=== PATIENT | male | born 1985 | race Caucasian/White ===

== ENCOUNTER 2021-04-30 13:26 | Emergency (ER) | payer SELFPAY ==
--- NOTE | ~2021-04-30 | XR_ITS ---
EXAMINATION: XR chest 2V EXAM DATE: 04/30/2021 13:41 INDICATION: Extremity swelling. TECHNIQUE: Frontal and lateral projections of the chest obtained and reviewed. Comparison is made to prior examination from 05/23/2014. FINDINGS: The lungs are clear. There are no pleural effusions. The cardiomediastinal silhouette is within normal limits. There is no pneumothorax suspected. The bones and soft tissues are unremarkab le. IMPRESSION: No acute cardiopulmonary findings. Reviewed, dictated and finalized at location A.
[2021-04-30 13:31] VITALS: BP 169/86; PULSE 102; RESP 19; TEMP 36.6; O2SAT 99
--- NOTE | 2021-04-30 13:31 | ECG_ITS ---
Measurements Intervals [place] Rate: 102 P: 53 CA: 151 QRS: 6 QRSD: 90 T: 34 QT: 333 QTc: 434 Interpretive Statements SINUS TACHYCARDIA DELAYED PRECORDIAL R/S TRANSITION BASELINE WANDER- I, II, III, AVR, AVL, V4 BORDERLINE ECG Electronically Signed On 04-30-2021 15:58:18 CDT by Pancho Mac D.O.
[2021-04-30 13:52] VITALS: BP 135/85; PULSE 102; RESP 20; O2SAT 96
[2021-04-30 14:04] LABS: Basophils Absolute Auto 0.1 K/mm3 (0.0-0.1); Basophils Percent Auto 0.8 % (0.2-1.2); Eosinophils Absolute Auto 0.2 K/mm3 (0-0.3); Eosinophils Percent Auto 2.8 % (0-4.4); Hematocrit 52.2 % (42.0-52.0); Hemoglobin 16.1 g/dL (14.0-18.0); Immature Granulocyte Absolute 0.03 K/mm3 (0.00-0.031); Immature Granulocyte Percent A 0.5 % (0-0.5); Lymphocytes Absolute Auto 1.97 K/mm3 (0.9-3.2); Lymphocytes Percent Auto 31.9 % (18.3-44.2); Mean Corpuscular HGB Conc 30.8 g/dl (32-36); Mean Corpuscular Hemoglobin 27.7 pg (26-34); Mean Corpuscular Volume 89.8 fl (80-100); Mean Platelet Volume 10.2 fl (7.4-10.4); Monocytes Absolute Auto 0.6 K/mm3 (0.1-0.6); Monocytes Percent Auto 9.7 % (2.6-8.5); Neutrophils Absolute Auto 3.4 K/mm3 (1.3-6.7); Neutrophils Percent Auto 54.3 % (45.5-73.1); Platelet Count Result 256 k/mm3 (150-375); Red Blood Count 5.81 M/mm3 (4.6-6.20); Red Cell Distribution Width 12.7 % (11.5-14.5); White Blood Count 6.2 K/mm3 (4.5-10.0)
[2021-04-30 14:16] LABS: Anion Gap 1 mmol/L (8-16); Blood Urea Nitrogen 11 mg/dL (9-20); Calcium 8.2 mg/dL (8.4-10.2); Carbon Dioxide 28 mmol/L (22-30); Chloride 108 mmol/L (98-107); Estimated CRCL calculation 204 ml/min; Estimated Glomerular Filt Rate > 60; Glucose 121 mg/dL (65-110); Potassium 4.1 mmol/L (3.4-5.0); Sodium 137 mmol/L (137-145)
[2021-04-30 14:28] LABS: NT Pro B Type Natriuretic Pept 173 pg/mL (5-100); Troponin I < 0.012 ng/mL (0.000-0.034)
[2021-04-30 14:29] VITALS: O2SAT 96
[2021-04-30 14:40] LABS: INR 0.9; Prothrombin Time 12.2 Seconds (11.1-14.7)
[2021-04-30 14:41] LABS: Partial Thromboplastin Time 28.7 SECONDS (22.3-36.8)
[2021-04-30 14:45] LABS: Alanine Aminotransferase 21 U/L (4-50); Albumin Level 2.2 g/dL (3.5-5.1); Alkaline Phosphatase 71 U/L (38-126); Aspartate Amino Transferase 29 U/L (17-59); Bilirubin,Total 0.2 mg/dL (0.2-1.3)
[2021-04-30 15:17] LABS: Add Urine Microscopic? YES; Appearance Urine Cloudy (Clear); Bilirubin Urine Negative (Negative); Blood Urine 2+ (Negative); Color Urine Yellow (Yellow); Glucose Urine UA Negative (Negative); Ketones Urine Negative (Negative); Leukocyte Esterase Ur Negative LEU/UL (Negative); Mucus Urine Rare /lpf; Nitrate Urine Negative (Negative); Protein Urine 3+ mg/dL (Negative); Specific Grav Ur 1.027 (1.001-1.035); Squamous Epithelial Cell Urine Rare /hpf (Few); Urobilinogen Urine Negative mg/dL (<2.0)
[2021-04-30 15:26] VITALS: BP 135/80; PULSE 90; RESP 17; O2SAT 96
[2021-04-30 15:35] LABS: Cholesterol 300 mg/dL (0-200); HDL Direct 42 mg/dL; Triglycerides 255 mg/dL (<150)
--- NOTE | 2021-04-30 15:42 | ED.EXTPRO ---
HPI - Extremity Problem General Chief complaint: Extremity Problem,Nontraumatic Stated complaint: EXTREMITY SWELLING Time Seen by Provider: 04/30/21 13:44 Source: patient Mode of arrival: ambulatory Limitations: no limitations History of Present Illness HPI Narrative: 35-year-old male Here for leg swelling Patient notes painless swelling of both legs which has been increasing for a couple of months He says that his weight he believes usually runs around 325 pounds but when he went to an urgent care in [place] a week ago they told him he weighed 450 pounds He does not have any complaints of exertional dyspnea or orthopnea, no fever There is no known history of cardiopulmonary disease liver disease or kidney disease Related Data Home Medications Medication Instructions Recorded Confirmed No Home Medications 04/30/21 04/30/21 Allergies Allergy/AdvReac Type Severity Reaction Status Date / Time No Known Allergies Allergy Verified 04/30/21 13:55 Review of Systems Review of Systems: All systems reviewed & are unremarkable except as noted in HPI and below Constitutional: Constitutional: Reports no additional constitutional complaints, Denies chills, Denies fatigue, Denies fever(s), Denies headache(s) and Denies weakness Eyes: Eyes: Reports no additional eye complaints and Denies change in vision ENT: Denies headache(s) and Denies sore throat Cardiovascular: Cardiovascular: Denies chest pain and Denies dyspnea Respiratory: Respiratory: Denies cough and Denies dyspnea Comments: No orthopnea, no PND, no exertional dyspnea Gastrointestinal: Gastrointestinal: Denies abdominal pain, Denies diarrhea and Denies vomiting Genitourinary: Genitourinary: Denies hematuria, Denies oliguria, Denies dysuria and Reports urinary frequency Musculoskeletal: Musculoskeletal: Denies deformity, Denies arthralgias, Reports joint swelling and Denies numbness Integumentary/Breasts: Skin/Breast: Denies rash and Denies wounds Neurologic: Denies headache(s), Denies focal weakness and Denies numbness Psychiatric: Psychiatric: Reports no additional psychiatric complaints Endocrine: Endocrine: Reports no additional endocrine complaints Hematologic/Lymphatic: Hematologic/Lymphatic: Reports no additional hematologic/lymphatic complaints Allergic/Immunologic: Allergic/Immunologic: Reports no additional allergic/immunologic complaints Exam Const: General: cooperative, no acute distress and alert Nutritional Appearance: obese Orientation/consciousness: patient oriented x3 (alert) HENMT: Head: normal to inspection, normocephalic and atraumatic Ears: external ears normal General nose exam: no epistaxis Eyes: Conjunctivae: conjunctivae normal EOM: EOMs intact bilaterally Neck: Neck: normal visual inspection, supple and no JVD Resp: Effort & Inspection: normal respiratory effort and not labored Auscultation: clear to auscultation bilaterally, no rales, no rhonchi, no wheezes and other (BS =) Cardio: Rate: regular rate Rhythm: regular rhythm Heart sounds: no murmurs GI: GI Palp: Yes Soft to palpation and No Tenderness to palpation present (GI) Skin: General skin exam: normal color and no rashes or lesions noted Rashes: no rashes Neuro: General: patient oriented x3 (alert) and moves all extremities Speech: normal speech Extrem: Other: 3+ pedal edema both legs No tenderness, no erythema Psych: Affect: normal affect Course Course Emergency Course: Discussed with hospitalist for admission and described diagnosis and plan in detail to the patient including 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
[2021-04-30 15:46] LABS: LDL Cholesterol Direct 221 mg/dL
== END 2021-04-30 15:56 | disposition left against medical advice (07) ==
PROVIDERS: Emergency Provider Emergency Medicine; PCP Emergency Medicine
DX: N04.9 Nephrotic syndrome with unspecified morphologic changes (principal); R60.0 Localized edema; R00.0 Tachycardia, unspecified
CPT/HCPCS: 36415; 71046; 80048; 80061; 80076; 81001; 83880; 84484; 85025; 85610; 85730; 87086; 93005; 99284

== ENCOUNTER 2021-05-22 09:15 | Outpatient (CLI) | payer BC, SELFPAY ==
--- NOTE | ~2021-05-22 | US_ITS ---
EXAMINATION: US renal BI EXAM DATE: 05/22/2021 09:54 INDICATION: Nephrotic syndrome. TECHNIQUE: Multiple grayscale and Doppler images of the kidneys were obtained (by a technologist who performed the scan) and subsequently reviewed. There is no prior study for comparison. FINDINGS: Some limitations from patient's body habitus, poor acoustic windows for visualizing kidneys . Right kidney: There is normal contour and echogenicity. It measures 12.2 x 4.1 x 5.3 centimeters. T here are no focal renal lesions identified. There is no hydronephrosis. Left kidney: There is normal contour and echogenicity. It measures 13.9 x 6.0 x 7.2 centimeters. Th ere are no focal renal lesions identified. There is no hydronephrosis. Bladder unremarkable. IMPRESSION: 1. Sonographically unremarkable kidneys. Reviewed, dictated and finalized at location A. [facility]
== END 2021-05-22 09:16 | disposition home or self-care (01) ==
LOC: ANHIMG 09:20
PROVIDERS: PCP Emergency Medicine; Visit Provider Internal Medicine Nephrology
DX: N04.9 Nephrotic syndrome with unspecified morphologic changes (principal)
CPT/HCPCS: 76775